=== PATIENT | male | born 1980 | race African-American/Black ===

== ENCOUNTER 2020-10-30 04:20 | Emergency (ER) | payer SELFPAY ==
[~2020-10-30] VITALS: Ht 188 cm; Wt 106.6 kg
[2020-10-30] MEDS ORDERED: MORPHINE SULFATE INJ 2 MG/ML SYR IV STA (06:17)
[2020-10-30 06:42] VITALS: BP 170/116
[2020-10-30] MEDS ORDERED: HYDROCODONE/APAP 10MG-325MG TAB PO NR (08:15)
[2020-10-30] MEDS ORDERED: CLONIDINE HCL 0.1 MG TAB PO NR (08:15)
[2020-10-30 11:06] LABS: ANION GAP 15.3 mmol/L (8-16); POTASSIUM 3.3 mmol/L (3.5-5.1)
[2020-10-30 11:07] LABS: ALBUMIN 3.2 g/dL (3.5-5.0); ALBUMIN/GLOBULIN RATIO 0.8 (0.8-2.0); CALCIUM 8.5 mg/dL (8.4-10.2); CREATINE KINASE MB 1.1 ng/mL (0-5.0); CREATININE, SERUM 2.85 mg/dL (0.72-1.25)
== END 2020-10-30 07:05 | disposition home or self-care (01) ==
LOC: ER 04:27
DX: D57.00 Hb-SS disease with crisis, unspecified (principal); I31.3 Pericardial effusion (noninflammatory); M25.552 Pain in left hip; M25.551 Pain in right hip; R94.31 Abnormal electrocardiogram [ECG] [EKG]
CPT/HCPCS: 36415; 71045; 80053; 82550; 82553; 83880; 84484; 87086; 93005; 99284; J2270